=== PATIENT | female | born 1990 ===

== ENCOUNTER → 2020-07-25 | Outpatient (CLI) | payer OTHER | LOC: LAB 19:36 → LAB SHORT 19:36 | DX: J02.9 Acute pharyngitis, unspecified (principal) | CPT/HCPCS: 87081; 87147 ==

== ENCOUNTER → 2021-08-05 | Outpatient (CLI) | payer OTHER | END | disposition home or self-care (01) | LOC: LAB 12:15 → LAB SHORT 12:15 | DX: J02.9 Acute pharyngitis, unspecified (principal) | CPT/HCPCS: 87081 ==

== ENCOUNTER → 2024-03-06 | Outpatient (CLI) | payer OTHER | LOC: LAB 15:10 → LAB SHORT 15:10 | DX: R30.0 Dysuria (principal) | CPT/HCPCS: 87077; 87086; 87186 ==

== ENCOUNTER → 2024-05-24 | Outpatient (CLI) | payer BC ==
[2024-06-03 18:32] LABS: HPV GENOTYPE 16 BY PCR Negative; HPV GENOTYPE 18 BY PCR Negative; HPV SOURCE Cervical; HPV, OTHER HIGH RISK BY PCR Positive
== END ==
LOC: LAB 17:51 → LAB SHORT 17:51
PROVIDERS: Nurse Practitioner Family
DX: Z12.4 Encounter for screening for malignant neoplasm of cervix (principal)
CPT/HCPCS: 87624; 88142

== ENCOUNTER → 2024-10-28 | Outpatient (CLI) | payer BC | LOC: LAB SHORT 12:05 → LAB 12:05 | DX: R30.0 Dysuria (principal) | CPT/HCPCS: 87077; 87086; 87186 ==

== ENCOUNTER → 2025-02-15 | Outpatient (CLI) | payer OTHER ==
[2025-02-15 19:31] LABS: Candida Group, PCR NOT DETECTED (NOT DETECT); Candida glabrata-krusei, PCR NOT DETECTED (NOT DETECT)
[2025-02-15 21:23] LABS: Bacterial Vaginosis PCR Positive (NEGATIVE)
== END | disposition home or self-care (01) ==
LOC: LAB SHORT 16:27 → LAB 16:27
PROVIDERS: Nurse Practitioner Family
DX: R35.0 Frequency of micturition (principal)
CPT/HCPCS: 81515; 87086

== ENCOUNTER → 2025-07-25 | Outpatient (CLI) | payer OTHER ==
[2025-08-04 14:02] LABS: HPVG SOURCE Cervical
== END | disposition home or self-care (01) ==
LOC: LAB SHORT 16:59 → LAB 16:59
PROVIDERS: Nurse Practitioner Family
DX: Z12.4 Encounter for screening for malignant neoplasm of cervix (principal)
CPT/HCPCS: 87624; 87625; G0145

== ENCOUNTER → 2025-11-03 | Outpatient (CLI) | payer OTHER | END | disposition home or self-care (01) | LOC: LAB SHORT 08:15 → LAB 08:15 | DX: D06.9 Carcinoma in situ of cervix, unspecified (principal); Z87.42 Personal history of other diseases of the female genital tract | CPT/HCPCS: 88305; 88341; 88342 ==